=== PATIENT | female | born 1940 | race Asian ===

== ENCOUNTER 2018-11-20 21:56 | Inpatient (IN) | payer OTHER ==
[~2018-11-20] VITALS: Ht 154.9 cm; Wt 65.5 kg
[~2018-11-20 21:56] MED LIST: COZAAR100 MG PO; FOLIC ACID1 MG PO; PIOGLITAZONE30 M1 PO; SIMVASTATIN20 M1 PO; TOPROL XL25 MG PO; VITAMIN D1000 I1 PO
[2018-11-20 22:04] VITALS: Ht 154.9 cm; Wt 65.5 kg
--- NOTE | 2018-11-20 22:10 | NUR ---
PT BIBA FOR C/O GENERALIZED WEAKNESS. PER PTS GRANDSON THE PT HAS A " KIDNEY TEST" TODAY DUE TO ALTERATION IN KIDNEY FUNCTION. PT REPORTS FEELING RT SIDED WEAKNESS TWO HOURS AFTER TEST. PER THE GRANDSOME THE PT REPOTS DIZZINESS AND WEAKNESS. PT HAS EQUAL GRISP. ASYMMETRIC SMILE. PT IS ABLE TO FOLLOW COMMAND ANSWER QUESTIONS APPROPRIATELY. PER FLAT SCREEN WORKER THE PT BLOOD SUGAR WAS 204 ON SCENE. PT WAS ABLE TO AMBULATE SLOWLY WITH ASSISTANCE FROM THE FLAT SCREEN WORKER AND EMT FROM [facility] TO [facility]. PT PLACED ON ALL CM AND IS AWAITING MSE. PT GRANDSON AT BEDSIDE. NO ACD
--- NOTE | 2018-11-20 22:18 | NUR ---
DR VELA AT BEDSIDE FOR MSE
--- NOTE | 2018-11-20 22:29 | NUR ---
PT TAKEN TO CT VIA JET [facility]OR[facility] BY TECH
--- NOTE | 2018-11-20 22:35 | NUR ---
PT RETURNED FROM CT WITH NO INCIDENCE
--- NOTE | 2018-11-20 22:38 | NUR ---
PORTABLE XRAY AT BEDSIDE
--- NOTE | 2018-11-20 22:41 | NUR ---
LAB AT BEDSIDE FOR BLOOD DRAW
[2018-11-20 22:51] LABS: BASOPHIL % 0.4 % (0-2); PLATELET COUNT 219 x10^3mcL (130-400); RED CELL DISTRIBUTION WIDTH 12.6 % (11.5-14.5)
--- NOTE | 2018-11-20 22:59 | NUR ---
PT WAS ABLE TO AMBULATE SLOWLY WITH ASSISTANCE FROM GRANDSON AND EMT TO RESTROOM
[2018-11-20 23:01] LABS: CALCIUM 9.6 mg/dL (8.5-10.1); CARBON DIOXIDE 25.3 mmol/L (21-32); CHLORIDE SERUM 99 mmol/L (98-107); CREATININE SERUM 1.7 mg/dL (0.6-1.0); GLUCOSE SERUM 158 mg/dL (74-106); POTASSIUM SERUM 3.8 mmol/L (3.5-5.1); SODIUM SERUM 135 mmol/L (136-145)
[2018-11-20 23:06] LABS: ALBUMIN 3.6 g/dL (3.4-5.0); ALKALINE PHOSPHATASE 62 U/L (46-116); ALT/SGPT 28 U/L (14-59); AST/SGOT 22 U/L (15-37); BILIRUBIN TOTAL 0.5 mg/dL (0.20-1.00)
--- NOTE | 2018-11-20 23:10 | NUR ---
TELE NEURO CONSULT IN SESSION NOW
--- NOTE | 2018-11-21 00:19 | NUR ---
DARWIN PT REPORT TO GEO UPSTAIRS ON TELE FLOOR TO ASSUME PRIMARY CARE OF PT
[2018-11-21 00:31] VITALS: BP 144/46
--- NOTE | 2018-11-21 00:35 | NUR ---
RECEIVED PT FROM ED VIA ISAURA. ORIENTED PT TO ROOM AND SURROUNDINGS. IV NOTED TO RH PATENT AND INTACT. TELE 22 PLACED ON PT READING SBR. INSTRUCTED PT ON THE USE OF CALL LIGHT FOR ASSISTANCE. ENDORSED PT TO PRIMARY NURSE ROQUE
--- NOTE | 2018-11-21 00:45 | NUR ---
RECIEVED PT FROM SURU RN IN NO ACUTE DISTRESS. ADMITTED FOR R SIDED WEAKNESS. NONE NOTED AT THIS TIME. AOX4. TELE #22, SB, HR 58. BREATHING E/U. IV TO RH, PATENT. GRANDSON AT BEDSIDE. ORIENTED TO ROOM. BED IN LOWEST POSITION, 2 SIDE RAILS UP, CALL LIGHT IN REACH. INSTRUCTED TO CALL FOR ASSISTANCE.
[2018-11-21 00:59] LABS: CHOLESTEROL/HDL RATIO 2.7; MAGNESIUM 2.4 mg/dL (1.8-2.4); PHOSPHOROUS 4.1 mg/dL (2.5-4.9)
[2018-11-21 04:51] VITALS: BP 107/51
--- NOTE | 2018-11-21 06:25 | NUR ---
NO SIGNS OF R SIDED WEAKNESS. NO ACUTE CHANGES. WILL ENDORSE TO ONCOMING RN.
[2018-11-21 06:50] LABS: BASOPHIL % 0.6 % (0-2); PLATELET COUNT 205 x10^3mcL (130-400); RED CELL DISTRIBUTION WIDTH 12.6 % (11.5-14.5)
[2018-11-21 07:02] LABS: CALCIUM 9.3 mg/dL (8.5-10.1); CARBON DIOXIDE 24.7 mmol/L (21-32); CHLORIDE SERUM 104 mmol/L (98-107); CREATININE SERUM 1.6 mg/dL (0.6-1.0); GLUCOSE SERUM 90 mg/dL (74-106); MAGNESIUM 2.5 mg/dL (1.8-2.4); PHOSPHOROUS 4.6 mg/dL (2.5-4.9); POTASSIUM SERUM 3.8 mmol/L (3.5-5.1); SODIUM SERUM 140 mmol/L (136-145)
[2018-11-21 07:25] VITALS: BP 133/58
--- NOTE | 2018-11-21 07:30 | NUR ---
RECEIVED PATIENT IN BED WITH GRANDSON AT BEDSIDE TO TRANSLATE. ALERT ORIETNED, DENIES ANY H/A OR DIZZINESS, SPEECH CLEAR, BILAT MASONRY INSTALLER STRONG AND EQUAL. IVF INFUSING WELL TO RT HAND. RESP EVEN AND UNLABORED, LUNGS CLEAR ON ROOM AIR. MOVES ALL EXTREMITIES WELL IN BED. TOLERATING DIET AT THIS TIME WELL.
[2018-11-21] MEDS ORDERED: ATENOLOL25 MG PO (09:01)
[2018-11-21 11:40] VITALS: BP 139/62
[2018-11-21 12:07] LABS: microscopic required? NO
[2018-11-21 12:28] LABS: UA SPECIFIC GRAVITY <=1.005 (1.005-1.035); urine erythrocyte NEGATIVE (NEGATIVE)
[2018-11-21 12:37] LABS: AMPHETAMINE QUAL UR NONE DETECTED (See below)
--- NOTE | 2018-11-21 12:54 | NUR ---
PATIENT'S PLAN OF CARE WAS DISCUSSED AND REVIEWED WITH MEDICINE TECHNOLOGIST:DIPIKA LOVE. I HAVE REVIEWED THE DATA COLLECTION BY MEDICINE TECHNOLOGIST (NAME):DIPIKA LOVE. ENTERED ON (DATE/TIME): I CONCUR WITH THE DATA AND ANY EXCEPTIONS OR COMMENTS ARE LISTED BELOW:
--- NOTE | 2018-11-21 14:56 | NUR ---
PATIENT REMAINS IN BED WITH FAMILY MEMBER AT BEDSIDE. NO NEURO DEFICITS NOTED. DENIES ANY H/A OR DIZZINESS, SPEECH CLEAR, BILAT FLUME MAKER STRONG AND EQUAL, NO FACIAL DROOP. WILL CONTINUE TO MONITOR.
[2018-11-21 16:15] VITALS: BP 130/66
[2018-11-21 21:03] VITALS: BP 150/56
--- NOTE | 2018-11-21 21:40 | NUR ---
RECEIVED REPORT FROM AM NURSE. PT LAYING DOWN IN BED WITH SON AT BEDSIDE. PT AAOX4, MANDARIN SPEAKING ONLY. FOLLOW COMMANDS. ABLE TO MAKE NEEDS KNOWN. DENIES VALENTE/DIZZINESS. NO FACIAL DROOP NOTED. SPEECH CLEAR. ON TELE#22 READING SR. DENIES CP/PRESSURE AT THIS TIME. PALPABLE PULSES TO BLE AND BUE. NO EDEMA NOTED. LUNG SOUNDS CTA ON RA. BREATHING EVEN AND UNLABORED. NO ACUTE DISTRESS NOTED. ABD SOFT AND NONDISTENDED. ACTIVE BOWEL SOUND X4 QUAD. DENIES N/V/D. VOIDS FREELY BRP. AMBULATORY WITH ASSIST. C/O WEKNESS TO RIGHT ARM AND RIGHT LEG. IV TO RH INFUSING NS AT 70ML/HR. SITE FREE FROM REDNESS AND SWELLING. BED AT LOWEST SETTING. SIDE RAILS X2 UP. CALL LIGHT WITHING REACH. WILL CONTINUE TO MONITOR.
--- NOTE | 2018-11-22 00:10 | NUR ---
PT LAYING DOWN IN BED WITH EYES CLOSED. BREATHING EVEN AND UNLABORED ON RA. NO ACUTE DISTRESS NOTED. NS RUNNING TO RH AT 70ML/HR. SON REMAINS AT BEDSIDE. BED AT LOWEST SETTING. SIDE RAILS X2 UP. CALL LIGHT WITHING REACH. WILL CONTINUE TO MONITOR.
[2018-11-22 05:16] VITALS: BP 135/46
[2018-11-22 06:11] LABS: BASOPHIL % 0.6 % (0-2); PLATELET COUNT 214 x10^3mcL (130-400); RED CELL DISTRIBUTION WIDTH 12.9 % (11.5-14.5)
--- NOTE | 2018-11-22 06:22 | NUR ---
PT SLEPT AT INTERVALS THROGHOUT THE NIGHT. BREATHING EVEN AND UNLABORED ON RA. NO ACUTE DISTRESS NOTED. NO SIGNIFICANT CHANGE DURING SHIFT. ALL NEEDS ASSESSED AND ATTENDED TO. NS RUNNING TO RH AT 70 ML/HR. SITE WNL. BED AT LOWEST SETTING. SIDE RAILS X2 UP. CALL LIGHT WITHING REACH. SON REMAINS AT BEDSIDE. WILL ENDORSE CARE TO AM NURSE.
[2018-11-22 06:46] LABS: CALCIUM 9.2 mg/dL (8.5-10.1); CHLORIDE SERUM 109 mmol/L (98-107); CREATININE SERUM 1.3 mg/dL (0.6-1.0); GLUCOSE SERUM 99 mg/dL (74-106); MAGNESIUM 1.9 mg/dL (1.8-2.4); PHOSPHOROUS 3.7 mg/dL (2.5-4.9); POTASSIUM SERUM 3.8 mmol/L (3.5-5.1); SODIUM SERUM 144 mmol/L (136-145)
--- NOTE | 2018-11-22 06:59 | NUR ---
PT LAYING DOWN IN BED. PT AAOX4, MANDARIN SPEAKING ONLY. FOLLOW COMMANDS. ABLE TO MAKE NEEDS KNOWN. DENIES VALENTE/DIZZINESS. NO FACIAL DROOP NOTED. SPEECH CLEAR. ON TELE#22 READING SR. DENIES CP/PRESSURE AT THIS TIME. PALPABLE PULSES TO BLE AND BUE. NO EDEMA NOTED. LUNG SOUNDS CTA ON RA. BREATHING EVEN AND UNLABORED. NO ACUTE DISTRESS NOTED. ABD SOFT AND NONDISTENDED. ACTIVE BOWEL SOUND X4 QUAD. DENIES N/V/D. VOIDS FREELY BRP. AMBULATORY WITH ASSIST. C/O WEAKNESS TO RIGHT ARM AND RIGHT LEG. IV TO RH INFUSING NS AT 70ML/HR. SITE FREE FROM REDNESS AND SWELLING. BED AT LOWEST SETTING. SIDE RAILS X2 UP. CALL LIGHT WITHING REACH. WILL CONTINUE TO MONITOR.
[2018-11-22 08:53] VITALS: BP 162/66
--- NOTE | 2018-11-22 09:24 | NUR ---
PT WENT TAKEN TO GET CT SCAN ACCOMPANIED WITH SON.
[2018-11-22 11:05] VITALS: BP 159/83
--- NOTE | 2018-11-22 11:28 | NUR ---
PT LAYING DOWN IN BED WITH SON AT BEDSIDE. PT BREATHING EVEN AND UNLABORED ON RA. NO ACUTE DISTRES NOTED. NO SIGNIFICATNT CHANGE DURING THE SHIFT. ALL NEEDS ASSESSED AND ATTENDED TO. ENDORSED CARE TO RENAE CAST.
[2018-11-22] MEDS ORDERED: ATORVASTATIN CA40 M1 PO (12:08)
[2018-11-22] MEDS ORDERED: NOR5 PO (12:21)
[2018-11-22] MEDS ORDERED: MAGNESIUM OXID400 MG PO (12:21)
[2018-11-22] MEDS ORDERED: CLOPIDOGREL75 M1 PO (12:23)
[2018-11-22] MEDS ORDERED: HYDROCHLOROTHIA50 MG PO (12:23)
[2018-11-22] MEDS ORDERED: ALENDRONATE SOD70 M3 PO (12:24)
[2018-11-22] MEDS ORDERED: GLIPIZIDE5 M2 PO (12:25)
[2018-11-22] MEDS ORDERED: ZETIA10 M1 PO (12:25)
--- NOTE | 2018-11-22 14:47 | NUR ---
ECHO/BUBBLE STUDY DONE
[2018-11-22 16:47] VITALS: BP 164/69
--- NOTE | 2018-11-22 17:54 | NUR ---
AAO TIMES 4. TELE # 22 SR. VS'S STABLE. NO SOB. NO C/O PAIN. SHE STATES HER RIGHT HAND SHREDDING SPECIALIST AND NUMBNESS ARE ALMOST GONE. IV SITE TO [facility]. COOPERATIVE AND PLEASANT. PATIENTS FAMILY PRESENT, SUPPORTIVE.
--- NOTE | 2018-11-22 19:30 | NUR ---
PT RECIEVED FROM DAY NURSE. PT RESTING IN BED COMFORTABLY. DENIES PAIN AT THIS TIME. FAMILY AT BEDSIDE. PT AOX4, CALM AND COOPERATIVE AT THIS TIME. TELE 22, NSR. DENIES CP, N/V, DIZZINESS, AND PALPATIONS. PALPABLE PULSES, NO EDEMA NOTED. BREATHING E/U ON RA. SPO2 98%. DENIES SOB. ABD, SOFT AND ROUND. DENIES PAIN TO PALPATION. RUE WEAKNESS NOTED. BED AT LOWEST POSTION. CALL LIGHT WITHIN REACH. WILL CONTINUE TO MONITOR.
[2018-11-22 20:14] VITALS: BP 120/63
--- NOTE | 2018-11-23 00:27 | NUR ---
PT RESTING IN BED COMFORTABLY. FAMILY AT BEDSIDE. BREATHING E/U ON RA. NO SIGNS OF ACUTE DISTRESS AT THIS TIME. BED AT LOWEST POSITION. CALL LIGHT WITHIN REACH. WILL CONTINUE TO MONITOR.
[2018-11-23 05:58] VITALS: BP 148/68
--- NOTE | 2018-11-23 06:15 | NUR ---
PT RESTING IN BED COMFORTABLY. NEPHEW AT BEDSIDE. DENIES PAIN AT THIS TIME. R SIDED WEAKNESS STILL APPARENT. BREATHING E/U ON RA. VSS. NO SIGNS OF ACUTE DISTRESS. BED AT LOWEST POSITION. CALL LIGHT WITHIN REACH. WILL ENDORSE TO DAY NURSE.
[2018-11-23 06:18] LABS: BASOPHIL % 0.5 % (0-2); PLATELET COUNT 214 x10^3mcL (130-400)
[2018-11-23 06:52] LABS: CARBON DIOXIDE 21.7 mmol/L (21-32); CHLORIDE SERUM 107 mmol/L (98-107); CREATININE SERUM 1.1 mg/dL (0.6-1.0); GLUCOSE SERUM 113 mg/dL (74-106); MAGNESIUM 1.6 mg/dL (1.8-2.4); PHOSPHOROUS 3.6 mg/dL (2.5-4.9); POTASSIUM SERUM 3.8 mmol/L (3.5-5.1); SODIUM SERUM 142 mmol/L (136-145)
--- NOTE | 2018-11-23 07:42 | NUR ---
AAO TIMES 4. TELE # 22 SR. LUNGS CTA. NO SOB. O2 SAT ON RA 95%. BS'S ACTIVE TIMES 4. GUTIERREZ WITH RIGHT SIDED WEAKNESS, RIGHT HAND WEAKER THAN RLE. BRP ASSIST. PERIPHERAL PULSES PALPABLE. NO EDEMA. PATIENTS SON AT BEDSIDE, SUPPORTIVE. NO C/O PAIN. SHE IS EATING BREAKFAST, FAIR APPETITE.
[2018-11-23 08:39] VITALS: BP 172/93
--- NOTE | 2018-11-23 11:13 | NUR ---
KELSEA STEEL ESTIMATOR AWARE THAT HER BP ISD 172/93, SHE IS LOOKING AT HER HOME MEDICATION LIST AND IS ALSO GOING TO TALK TO DR KEY. PER DR KEY, HE WANTS TO RESUME ANTI HYPERTENSIVE MEDICATIONS IF SBP RISES ABOVE 220. HEIDI WILL STILL TALK TO DR KEY.
[2018-11-23 12:17] VITALS: BP 181/87
[2018-11-23 16:56] VITALS: BP 161/81
--- NOTE | 2018-11-23 18:09 | NUR ---
AAO TIMES 4. TELE # 22 SR. FAMILY PRESENT MOST OF DAY, SON AND GRANDSON, THEY TALKED WITH HEIDI VIA TELEPHONE TODAY ABOUT HER DIAGNOSIS AND PLANS FOR TREATMENT, THEY WERE SATIFIED AFTER PHONE CALL. IV SITE CDI. COOPERATIVE. NO C/O PAIN. RIGHT HAND DIRECTOR OF LEADERSHIP DEVELOPMENT ABSENT, LEFT HAND MEDICAL RECORDS SPECIALIST STRONG. RLE WITH WEAKNESS, AMBULATES ASSIST.
--- NOTE | 2018-11-23 19:30 | NUR ---
PT IS A/O x4. MANDARIN SPEAKING ONLY, SON IS AT BEDSIDE TO HELP TRANSLATE. PT ABLE TO FOLLOW COMMANDS. PERRLA. NO FACIAL DROOP NOTED. RUE IS FLACCID. SLIGHT WEAKNESS ON RLE. ON TELE #22, NSR. DENIES ANY CHEST PAIN OR PRESSURE. PULSES ARE PRESENT. NO EDEMA NOTED. LUNGS CLEAR IN ALL DAVIS. ON RA, DENIES ANY SOB. EQUAL CHEST RISE AND FALL. NO SIGN OF RESP DISTRESS. BOWEL SOUNDS PRESENT x4. DENIES ANY ABD PAIN OR DISTRESS. SKIN WARM AND INTACT. DENIES ANY PAIN AT THIS TIME. IV ON LAC INTACT AND PATENT. NO SIGN OF IRRITATION OR INFILTRATION NOTED. BED IS AT LOWEST SETTING. CALL LIGHT WITHIN REACH. WILL CONTINUE TO MONTIOR.
[2018-11-23 20:18] VITALS: BP 156/80
--- NOTE | 2018-11-24 01:30 | NUR ---
PT IS RESTING IN BED WITH BOTH EYES CLOSED. BREATHING EVEN AND UNLABORED. NO SIGN OF DISTRESS NOTED. BED IS AT LOWEST SETTING. CALL LIGHT WITHIN REACH. SON AT BEDSIDE. WILL CONTINUE TO MONTIOR.
[2018-11-24 05:57] VITALS: BP 162/77
--- NOTE | 2018-11-24 06:40 | NUR ---
PT IS RESTING IN BED. NO SIGN OF DISTRESS NOTED. NO ACUTE EVENT OCCURED AT NIGHT. SON AT BEDSIDE ALL NIGHT. BED IS AT LOWEST SETTING. CALL LIGHT WITHIN REACH. WILL ENDORSE TO AM NURSE.
[2018-11-24 06:43] LABS: CALCIUM 8.9 mg/dL (8.5-10.1); CARBON DIOXIDE 21.5 mmol/L (21-32); CHLORIDE SERUM 106 mmol/L (98-107); CREATININE SERUM 1.1 mg/dL (0.6-1.0); GLUCOSE SERUM 110 mg/dL (74-106); POTASSIUM SERUM 3.7 mmol/L (3.5-5.1); SODIUM SERUM 141 mmol/L (136-145)
[2018-11-24 06:47] LABS: BASOPHIL % 0.5 % (0-2); PLATELET COUNT 221 x10^3mcL (130-400); RED CELL DISTRIBUTION WIDTH 12.8 % (11.5-14.5)
--- NOTE | 2018-11-24 07:25 | NUR ---
SEEN IN BED AAOX4. NO RESP DISTRESS NOTED ON ROOM AIR. PATIENT'S SON AT BEDSIDE. ON TELE#22 NSR. DENIES PAIN. IVF NS TO LAC IV SITE INFUSING AT 70ML/HR. NO EDEMA TO EXTREAMITIES. RIGHT UPPER ARM FLACCID, WEAKNESS TO RLE. ABLE TO AMBULATE WITH ASSISTANCE. PLAN OF CARE DISCUSSED. CALL LIGHT PLACED WITHIN EASY REACH. SIDERAILS UP X2.
[2018-11-24 09:08] VITALS: BP 171/75
--- NOTE | 2018-11-24 12:00 | NUR ---
SITTIN UP IN CHAIR. DENIES PAIN. BREATHING E/U ON ROOM AIR. PATIENT'S GRANDSON AT BEDSIDE.
[2018-11-24 12:06] VITALS: BP 161/81
--- NOTE | 2018-11-24 13:31 | NUR ---
MICHELLE ACEVEDO STAFF HERE SPEAK TO PATIENT'S GRANDSON YANET.
--- NOTE | 2018-11-24 16:19 | NUR ---
TELEPHONE REPORT GIVEN TO RENAE FOX FROM [facility]. PATIENT WILL BE TRANSFERRED TO ROOM 1231-B BY PRIVATE AUTO.
--- NOTE | 2018-11-24 16:33 | NUR ---
PATIENT AND PATIENT'S GRANDSON MADE AWARE OF TRANSFER TO [facility]. TRANSFER PACKAGE GIVEN TO PATIENT'S GRANDSON YANET TRUJILLO AT BEDSIDE. PATIENT WILL BE TRANSFERED AFTER DINNER.
--- NOTE | 2018-11-24 17:55 | NUR ---
S/L TO LAC REMOVED WITH CATHETER INTACT, DSRG APPLIED. TELEMETRY RETURNED TO [facility]. TRANSFER GOWN CHANGED. DENIES PAIN AT THIS TIME. BROUGHT VIA WHEELCHAIR ASSISTED BY DELFINO SNELL AND PATIENT'S GRANDSON YANET TO [facility]. PATIENT WILL BE BROUGHT BY PRIVATE AUTO TO [facility]. CONDITION STABLE UPON DISCHARGE.
== END 2018-11-24 17:55 | DRG 64 ==
LOC: ED 21:56 → DU 23:49
PROVIDERS: Emergency Medicine; Internal Medicine; ADMIT Internal Medicine
DX: I63.9 Cerebral infarction, unspecified (principal); N17.0 Acute kidney failure with tubular necrosis; E87.1 Hypo-osmolality and hyponatremia; G81.91 Hemiplegia, unspecified affecting right dominant side; Q21.0 Ventricular septal defect; E11.65 Type 2 diabetes mellitus with hyperglycemia; D64.9 Anemia, unspecified; I10 Essential (primary) hypertension; Z79.4 Long term (current) use of insulin; Z68.25 Body mass index [BMI] 25.0-25.9, adult
CPT/HCPCS: 82962; 97110-GP; 97116-GP; 97530-GP; G0378; J7030; Q0092; Q9967